=== PATIENT | female | born 1965 | race Caucasian/White ===

== ENCOUNTER → 2016-10-13 | Outpatient (CLI) | payer BC ==
[~2016-10-13] MED LIST: ASP81TEC PO; DCS100C PO; ENAL2.5T PO; ENAL5TAB PO; HYDR-34 PO; IBP600T1 PO; IBUP-1773 PO; MEDR10TA PO; METO50TA7 PO; Simethicone PO
--- NOTE | 2016-10-16 18:57 | Diagnostic Imaging Report ---
Bilateral screening mammogram. The current study was also evaluated with a Computer Aided Detection (CAD) system. INDICATION: Screening. No current complaints stated on the questionnaire. COMPARISON: 09/25/14 FINDINGS: The breasts are composed of heterogeneously dense parenchyma which may decrease mammographic sensitivity. There are scattered punctate calcifications seen. Allowing for technique and positional differences, no suspicious change is seen. IMPRESSION: No significant change. ACR BI-RADS Category 2: Benign findings. Result letter will be mailed to the patient. Note: At least 10% of breast cancer is not imaged by mammography. Dictated by: Dictated on workstation # [id number]
== END ==
LOC: RAD 13:01
PROVIDERS: ATTEND Obstetrics & Gynecology
DX: Z12.31 Encounter for screening mammogram for malignant neoplasm of breast (principal)
CPT/HCPCS: 77067

== ENCOUNTER 2018-07-10 16:57 | Observation (INO) | payer SELFPAY ==
[~2018-07-10] VITALS: Ht 157.5 cm; Wt 80.7 kg
[2018-07-10] VITALS (8 sets, daily range): BP systolic 106–135; BP diastolic 67–78
[2018-07-10 17:21] LABS: BASOPHILS % (AUTO) 0 % (0-10); EOSINOPHILS # (AUTO) 0.1 10^3/uL (0.0-0.3); EOSINOPHILS % (AUTO) 1 % (0-10); HEMATOCRIT 41 % (35-52); HEMOGLOBIN 13.9 G/DL (11.5-16.0); LYMPHOCYTES # (AUTO) 1.9 X 10^3 (1.0-4.0); LYMPHOCYTES % (AUTO) 20 % (12-44); MEAN CORPUSCULAR HEMOGLOBIN 29 PG (25-34); MEAN CORPUSCULAR HGB CONC 34 G/DL (32-36); MEAN CORPUSCULAR VOLUME 84 FL (80-99); MEAN PLATELET VOLUME 9.9 FL (7.4-10.4); MONOCYTES # (AUTO) 0.7 X 10^3 (0.0-1.0); MONOCYTES % (AUTO) 7 % (0-12); NEUTROPHILS # (AUTO) 6.5 X 10^3 (1.8-7.8); NEUTROPHILS % (AUTO) 71 % (42-75); PLATELET COUNT 282 10^3/uL (130-400); RED CELL DISTRIBUTION WIDTH 13.2 % (10.0-14.5); WHITE BLOOD COUNT 9.2 10^3/uL (4.3-11.0)
--- NOTE | 2018-07-10 17:23 | Diagnostic Imaging Report ---
INDICATION: Chest pain. FINDINGS: Upright chest shows normal heart size and vascularity. The lungs are clear. There is no effusion or pneumothorax. There is no bony abnormality. IMPRESSION: Normal chest with no change from 12/18/2014. Dictated by: Dictated on workstation # [id number]
[2018-07-10] MEDS ORDERED: ACETAMINOPHEN 500 MG TAB (TYLENOL) PO STA (17:28)
[2018-07-10] MEDS ORDERED: meTOproloL SUCCINATE 50 MG (TOPROL XL) TAB PO SCH (17:30)
[2018-07-10 17:38] LABS: PROTHROMBIN TIME PATIENT 13.1 SEC (12.2-14.7)
[2018-07-10 17:45] LABS: ALANINE AMINOTRANSFERASE 40 U/L (0-55); ALBUMIN 4.4 GM/DL (3.2-4.5); ALKALINE PHOSPHATASE 105 U/L (40-136); BILIRUBIN,TOTAL 0.4 MG/DL (0.1-1.0); BUN/CREATININE RATIO 18; CALCIUM 9.6 MG/DL (8.5-10.1); CARBON DIOXIDE 25 MMOL/L (21-32); CHLORIDE 106 MMOL/L (98-107); CREATININE SERUM 0.73 MG/DL (0.60-1.30); GFR ESTIMATED > 60; GLUCOSE 110 MG/DL (70-105); MAGNESIUM 2.3 MG/DL (1.8-2.4); POTASSIUM 3.7 MMOL/L (3.6-5.0); SODIUM 141 MMOL/L (135-145); TOTAL PROTEIN 7.2 GM/DL (6.4-8.2)
[2018-07-10] MEDS ORDERED: ONDANSETRON 4 MG/2 ML (SDV) Z0FRAN ONE (17:49)
--- NOTE | 2018-07-10 17:50 | ED Chest Pain ---
General Chief Complaint: Chest Pain Stated Complaint: CP Nursing Triage Note: TO ED PER EMS FROM [facility] WITH C/O CHEST AND SOA ONSET AT 1230 TODAY. PAIN A 7/10 ON EMS ARRIJVAL 1 INCH OF NITRO PASTE PLACED ON CHEST WALL ON ADMIT TO ED PAIN FREE. CONCERN FROM [facility] THAT SHE WAS HYPERTENSIVE FOR THEM. Nursing Sepsis Screen: No Definite Risk Source: patient Exam Limitations: no limitations (KELLY BARRETO MD) History of Present Illness Date Seen by Provider: Jul 10, 2018 Time Seen by Provider: 17:21 Initial Comments Ear with onset of chest palpitations and some discomfort that radiated to her back that started at about 12:30 today. Seen at clinic and had pain that was 7 out of 10. She does have an inch of Nitropaste on the chest wall which did help significantly and currently is pain-free. She apparently was hypertensive at the clinic. She admits that she for got to take her metoprolol today. Denies nausea or vomiting but did vomit after arrival. Does have some shortness of breath. Denies sweating. Timing/Duration: 4-6 hours Severity/Quality: moderate, aching Location: central Radiation: back Activities at Onset: none Prior CP/Workup: cardiac cath, echocardiography, stress test Modifying Factors: improves with nitroglycerin, improves with rest ASA po TOBACCO BALER: Yes NTG SL TOBACCO BALER: Yes Associated Symptoms: nausea/vomiting, shortness of breath; No weakness ( KELLY BARRETO MD) Allergies and Home Medications Allergies Coded Allergies: Penicillins (Verified Allergy, Unknown, 08/13/14) latex (Verified Allergy, Unknown, 08/13/14) Home Medications Docusate Sodium 100 Mg Cap, 100 MG PO BID PRN for CONSTIPATION Prescribed by: ALYX STARK on 10/29/14 172 Enalapril Maleate 5 Mg Tablet, 5 MG PO BID, (Reported) Hydrocodone Bit/Acetaminophen 1 Ea Tablet, 1-2 EA PO Q6H PRN for PAIN Prescribed by: ALYX STARK on 10/29/14 172 Ibuprofen 600 Mg Tab, 600 MG PO Q6H PRN for PAIN Prescribed by: ALYX STARK on 10/29/14 172 Metoprolol Succinate 50 Mg Tab, 50 MG PO HS, (Reported) [Simethicone] 80 MG CHEW, 40 MG PO TID PRN for INDIGESTION Prescribed by: ALYX STARK on 10/29/14 1721 Patient Home Medication List Home Medication List Reviewed: Yes (KELLY BARRETO MD) Review of Systems Review of Systems Constitutional: see HPI; No chills, No fever EENTM: No Symptoms Reported Respiratory: Denies Cough; Shortness of Air Cardiovascular: Chest Pain, Palpitations Gastrointestinal: Nausea, Vomiting Genitourinary: No Symptoms Reported Musculoskeletal: no symptoms reported Skin: no symptoms reported Psychiatric/Neurological: No Symptoms Reported (KELLY BARRETO MD) All Other Systems Reviewed Negative Unless Noted: Yes (KELLY BARRETO MD) Past Rpofhwi-Xiqhsa-Njrkbi Hx Past Med/Social Hx: Reviewed Nursing Past Med/Soc Hx (KELLY BARRETO MD) Patient Social History Alcohol Use: Occasionally Uses Recreational Drug Use: No Smoking Status: Never a Smoker Recent Foreign Travel: No Contact w/Someone Who Travel: No Recent Infectious Disease Expo: No (KELLY BARRETO MD) Past Medical History Surgeries: Yes Section, Hysterectomy Respiratory: No Cardiac: Yes (() Hypertension 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 Genitourinary: No Gastrointestinal: No Musculoskeletal: No Endocrine: No HEENT: No Loss of Vision: Denies Hearing Impairment: Denies Cancer: No Did You Recieve Any Treatments: No (KELLY BARRETO MD) Family Medical History Reviewed Nursing Family Hx (Is on the) (KELLY BARRETO MD) Diabetes mellitus 19 FATHER Hypertension 19 FATHER 19 MOTHER Thyroid disease 19 MOTHER No Family History of: AIDS Abdominal aortic aneurysm Alcoholism Aphasia Arthritis Asthma Cardiovascular disease Cataracts Colon cancer Completed stroke Congenital disease Dementia Drug abuse Kidney disease Myocardial infarction Parkinson's disease Prostate cancer Psychosocial problem Respiratory disorder Seizure disorder Severe allergy Tuberculosis Visual disorder Physical Exam Vital Signs Vital Signs - First Documented 07/10/18 16:57 Temp 98.0 Pulse 116 Resp 18 B/P (MAP) 159/108 (125) Pulse Ox 95 O2 Delivery Room Air (ARIADNEDANIEL K DO) Vital Signs Capillary Refill : Less Than 3 Seconds (KELLY BARRETO MD) Height, Weight, BMI Height: 5'2.00" Weight: 175lbs. 0.0oz. 79.652830dc; BMI Method:Stated General Appearance: No Apparent Distress, WD/WN HEENT: PERRL/EOMI, Pharynx Normal Neck: Non Tender, Supple Respiratory: Lungs Clear, Normal Breath Sounds (Right) Cardiovascular: No Murmur, Tachycardia Gastrointestinal: Non Tender, Soft Extremity: Normal Range of Motion, Non Tender Neurologic/Psychiatric: Alert, Oriented x3 Skin: Normal Color, Warm/Dry (KELLY BARRETO MD) Progress/Results/Core Measures Results/Orders Lab Results Laboratory Tests Test 07/10/18 17:11 Range/Units White Blood Count 9.2 4.3-11.0 10^3/uL Red Blood Count 4.86 4.35-5.85 10^6/uL Hemoglobin 13.9 11.5-16.0 G/DL Hematocrit 41 35-52 % Mean Corpuscular Volume 84 80-99 FL Mean Corpuscular Hemoglobin 29 25-34 PG Mean Corpuscular Hemoglobin Concent 34 32-36 G/DL Red Cell Distribution Width 13.2 10.0-14.5 % Platelet Count 282 130-400 10^3/uL Mean Platelet Volume 9.9 7.4-10.4 FL Neutrophils (%) (Auto) 71 42-75 % Lymphocytes (%) (Auto) 20 12-44 % Monocytes (%) (Auto) 7 0-12 % Eosinophils (%) (Auto) 1 0-10 % Basophils (%) (Auto) 0 0-10 % Neutrophils # (Auto) 6.5 1.8-7.8 X 10^3 Lymphocytes # (Auto) 1.9 1.0-4.0 X 10^3 Monocytes # (Auto) 0.7 0.0-1.0 X 10^3 Eosinophils # (Auto) 0.1 0.0-0.3 10^3/uL Basophils # (Auto) 0.0 0.0-0.1 10^3/uL Prothrombin Time 13.1 12.2-14.7 SEC INR Comment 1.0 0.8-1.4 Activated Partial Thromboplast Time 31 24-35 SEC D-Dimer 0.31 0.00-0.49 UG/ML Sodium Level 141 135-145 MMOL/L Potassium Level 3.7 3.6-5.0 MMOL/L Chloride Level 106 98-107 MMOL/L Carbon Dioxide Level 25 21-32 MMOL/L Anion Gap 10 5-14 MMOL/L Blood Urea Nitrogen 13 7-18 MG/DL Creatinine 0.73 0.60-1.30 MG/DL Estimat Glomerular Filtration Rate > 60 BUN/Creatinine Ratio 18 Glucose Level 110 H 70-105 MG/DL Calcium Level 9.6 8.5-10.1 MG/DL Corrected Calcium 9.3 8.5-10.1 MG/DL Magnesium Level 2.3 1.8-2.4 MG/DL Total Bilirubin 0.4 0.1-1.0 MG/DL Aspartate Amino Transf (AST/SGOT) 27 5-34 U/L Alanine Aminotransferase (ALT/SGPT) 40 0-55 U/L Alkaline Phosphatase 105 40-136 U/L Myoglobin 47.0 10.0-92.0 NG/ML Troponin I < 0.028 <0.028 NG/ML Total Protein 7.2 6.4-8.2 GM/DL Albumin 4.4 3.2-4.5 GM/DL Thyroid Stimulating Hormone (TSH) 1.69 0.35-4.94 UIU/ML (DANIEL GRIGGS DO) Medications Given in ED Current Medications Medications Dose Ordered Sig/Barney Route Start Time Stop Time Status Last Admin Dose Admin Ondansetron HCl 4 mg ONCE ONCE IVP 07/10/18 18:00 07/10/18 18:01 DC 07/10/18 17:55 4 MG (DANIEL GRIGGS DO) Vital Signs/I&O 07/10/18 16:57 Temp 98.0 Pulse 116 Resp 18 B/P (MAP) 159/108 (125) Pulse Ox 95 O2 Delivery Room Air (DANIEL GRIGGS DO) Blood Pressure Mean: 125 Progress Progress Note : Progress Note Seen and evaluated. IV the clinic. Patient received aspirin and nitroglycerin prior to arrival. Labs, EKG and chest x-ray ordered. Patient has headache so Tylenol 1 g by mouth given. Toprol-XL 50 mg by mouth given. Patient did have some dry heaves afterwards. We will remove the Nitropaste. Zofran 4 mg IV ordered. Pending labs. Monitor patient. 1811: Care transferred to Dr. Griggs pending labs. Overall improved currently without vomiting or chest pain. (KELLY BARRETO MD) Progress Note : Progress Note 1800--ASSUMED CARE FROM DR. BARRETO, ALL STUDIES BACK AND ARE NORMAL. PT IS PAIN -FREE AT THIS TIME PT STATES SHE SEES DR. DURÁN ON FAIRLY REGULAR BASIS, LAST VISIT WAS > 6 MONTHS AGO PT ALSO SEES AMA MACKEY AT [facility] NOW. (DANIEL GRIGGS DO) Initial ECG Impression Date: Jul 10, 2018 Initial ECG Impression Time: 17:04 Initial ECG Rate: 116 Initial ECG Rhythm: S.Tach Comment Sinus tachycardia with normal axis. No evidence of ST elevation TN. Similar to EKGs done at clinic earlier today as well as 08/13/14 bit faster rate than then. Interpreted by me. (KELLY BARRETO MD) Diagnostic Imaging Diagonstic Imaging: Xray Plain Films/CT/US/NM/MRI: chest Comments [facility] [place], [place] NAME: ELOISE FITZGERALD [facility] REC#: [id number] PT STATUS: REG ER : 1965 PHYSICIAN: KELLY BARRETO MD ADMIT DATE: 07/10/18/ER Draft Date of Exam:07/10/18 CHEST 1 VIEW, AP/PA ONLY INDICATION: Chest pain. FINDINGS: Upright chest shows normal heart size and vascularity. The lungs are clear. There is no effusion or pneumothorax. There is no bony abnormality. IMPRESSION: Normal chest with no change from 12/18/2014. Dictated on workstation # [id number] Dict: 07/10/18 1720 Trans: 07/10/18 1723 [id number] Interpreted by: LETTY VAN MD Electronically signed by: (KELLY BARRETO MD) Departure Communication (Admissions) 1827--SPOKE WITH DR ROBLES, ACCEPTS PT FOR ADMIT. WILL CONSULT TEST LEAD APPLICATION TESTING (DANIEL GRIGGS DO) Impression Primary Impression: Chest pain Disposition: ADMITTED INPATIENT Condition: Improved Admissions Decision to Admit Reason: Admit from ER (General) Decision to Admit/Date: Jul 10, 2018 Time/Decision to Admit Time: 18:30 (DANIEL GRIGGS DO) Departure-Patient Inst. Referrals: DANIEL AVILES MD (PCP/Family) Primary Care Physician KELLY BARRETO MD Jul 10, 2018 17:49 DANIEL GRIGGS DO Jul 10, 2018 18:30
--- NOTE | 2018-07-10 17:55 | NUR ---
NITRO PASTE REMOVED FROM PTS CHEST AT THIS TIME PER DR BARRETO
[2018-07-10] MEDS ORDERED: ONDANSETRON 4 MG/2 ML (SDV) Z0FRAN IVP ONE (18:00)
--- NOTE | 2018-07-10 18:22 | NUR ---
TO ROOM FEELING BETTER. AFTER ZOFRAN
--- NOTE | 2018-07-10 18:36 | NUR ---
CALLED FOR ROOM
--- NOTE | 2018-07-10 20:00 | NUR ---
ELOISE FITZGERALD admitted to room 417-1, with an admitting diagnosis of CHEST PAIN, on 07/10/18 from ED via , accompanied by STAFF AND .ELOISE FITZGERALD introduced to surroundings, call light, bed controls, phone, TV, temperature control, lights, meal times, smoking policy, visitor policy, side rail policy, bathrooms and showers. Patient Rights given to patient in the handbook. ELOISE FITZGERALD verbalizes understanding that [facility] is not responsible for the loss or damage to any personal effects or valuables that are kept in the patients possession during their hospitalization. PLANS OF CARE DISCUSSED WITH PT AND VERBALIZES UNDERSTANDING. ELOISE FITZGERALD verbalizes understanding of Interdisciplinary Patient Education. Patient and/or family were informed about the Rapid Response Team and its purpose.
[2018-07-10] MEDS ORDERED: morphine INJ 4 MG/ML 1 ML (VIAL/SYRINGE) IV PRN (20:30)
[2018-07-10] MEDS ORDERED: ACETAMINOPHEN 500 MG TAB (TYLENOL) PO PRN (20:30)
[2018-07-10] MEDS ORDERED: ONDANSETRON 4 MG/2 ML (SDV) Z0FRAN IV PRN (20:30)
[2018-07-10] MEDS ORDERED: CATHETER FLUSH 10 ML SYR IV PRN (20:30)
[2018-07-10] MEDS ORDERED: NITROGLYCERIN 0.4 MG SL TABS BTL 25'S SL PRN (20:30)
--- NOTE | 2018-07-10 20:52 | NUR ---
THIS RN NOTIFIED DR ARDON OF CARDIAC CONSULT ON PT. DR ARDON GAVE ORDERS TO CANCEL NPO AND THAT HE WOULD NOTIFY DR DURÁN TO SEE HER TOMORROW.
[2018-07-10 21:16] LABS: BASOPHILS % (AUTO) 0 % (0-10); EOSINOPHILS # (AUTO) 0.1 10^3/uL (0.0-0.3); EOSINOPHILS % (AUTO) 1 % (0-10); HEMATOCRIT 40 % (35-52); HEMOGLOBIN 13.5 G/DL (11.5-16.0); LYMPHOCYTES # (AUTO) 1.7 X 10^3 (1.0-4.0); LYMPHOCYTES % (AUTO) 17 % (12-44); MEAN CORPUSCULAR HEMOGLOBIN 29 PG (25-34); MEAN CORPUSCULAR HGB CONC 34 G/DL (32-36); MEAN CORPUSCULAR VOLUME 84 FL (80-99); MEAN PLATELET VOLUME 9.9 FL (7.4-10.4); MONOCYTES # (AUTO) 0.6 X 10^3 (0.0-1.0); MONOCYTES % (AUTO) 6 % (0-12); NEUTROPHILS # (AUTO) 7.5 X 10^3 (1.8-7.8); NEUTROPHILS % (AUTO) 76 % (42-75); PLATELET COUNT 286 10^3/uL (130-400); RED CELL DISTRIBUTION WIDTH 13.2 % (10.0-14.5); WHITE BLOOD COUNT 9.9 10^3/uL (4.3-11.0)
[2018-07-10 21:21] LABS: PROTHROMBIN TIME PATIENT 13.8 SEC (12.2-14.7)
[2018-07-10 21:30] LABS: ALANINE AMINOTRANSFERASE 40 U/L (0-55); ALBUMIN 4.3 GM/DL (3.2-4.5); ALKALINE PHOSPHATASE 91 U/L (40-136); BILIRUBIN,TOTAL 0.5 MG/DL (0.1-1.0); BUN/CREATININE RATIO 18; CALCIUM 9.7 MG/DL (8.5-10.1); CARBON DIOXIDE 25 MMOL/L (21-32); CHLORIDE 104 MMOL/L (98-107); CREATINE KINASE 69 U/L (29-168); CREATININE SERUM 0.77 MG/DL (0.60-1.30); GFR ESTIMATED > 60; GLUCOSE 113 MG/DL (70-105); POTASSIUM 3.7 MMOL/L (3.6-5.0); SODIUM 140 MMOL/L (135-145); TOTAL PROTEIN 6.8 GM/DL (6.4-8.2)
[2018-07-10] MEDS: CATHETER FLUSH 10 ML SYR IV SCH (22:09)
[2018-07-11] VITALS: BP 98/60
[2018-07-11 01:00] VITALS: BP 128/68
[2018-07-11 02:44] LABS: CHOLESTEROL 184 MG/DL (< 200); HDL CHOLESTEROL 52 MG/DL (40-60); TRIGLYCERIDES 101 MG/DL (<150); VLDL CHOLESTEROL 20 MG/DL (5-40)
[2018-07-11 04:48] VITALS: BP 112/54
[2018-07-11] MEDS: CATHETER FLUSH 10 ML SYR IV SCH ×2 (06:16→14:55)
[2018-07-11 07:45] VITALS: BP 133/70
[2018-07-11] MEDS ORDERED: ASPIRIN E.C. 81 MG (ECOTRIN) TAB PO SCH (09:00)
[2018-07-11] MEDS ORDERED: PHEN-832 PO (09:00)
[2018-07-11] MEDS ORDERED: ENAL10TA PO (09:00)
[2018-07-11] MEDS ORDERED: HYDR25TA4 PO (09:00)
[2018-07-11] MEDS ORDERED: FLUT16SP22 NS (09:00)
[2018-07-11] MEDS ORDERED: FEXO180T84 PO (09:00)
[2018-07-11] MEDS ORDERED: METO-370 PO (09:17)
--- NOTE | 2018-07-11 09:34 | NUR ---
SPOKE WITH THE PATIENT ABOUT HER MEDICATIONS. SHE LISTED TO ME WHAT SHE TAKES AND I COMPARED IT WITH THE LIST OF MEDICATIONS ON THE CHART. THE LIST ON THE CHART IS A PROGRESS NOTE FROM [facility]. THERE ARE A FEW MEDS ON THAT LIST THAT THAT PATIENT STATES SHE IS NO LONGER TAKING. SHE STATES SHE GETS MOST OF HER MEDS THROUGH THE REPOSITORY AT [facility]. LIST FROM [facility]: ENALAPRIL 10MG DAILY (LAST DOCUMENTED THAT IT WAS GIVEN FROM REPOSITORY 12-27-17 #90) HCTZ 25MG DAILY (UNKNOWN LAST DISPENSE DATE, PATIENT STATES SHE USES PRN SWELLING) METOPROLOL TARTRATE 50MG DAILY (NOTED THAT THIS IS INCORRECT AND PATIENT IS TAKING SUCC) METOPROLOL SUCCINATE 50MG DAILY ESCITALOPRAM 20MG DAILY (STATES SHE IS NOT CURRENTLY TAKING) TOLTERODINE TARTRATE ER 2MG DAILY (STATES SHE IS NOT CURRENTLY TAKING) GERARD 180MG DAILY PRN SUDAFED (STATES SHE BUYS SUDAFED PE AND ONLY USES PRN) FLONASE NASAL SPRAY NEEDED WHEN I SPOKE WITH A NURSE AT [facility] SHE COULD NOT FIND DOCUMENTATION OF THE METOPROLOL BEING DISPENSED THROUGH THE REPOSITORY, SHE STATES THERE IS A NOT THAT THE TARTRATE WAS REFILLED ON 03-28-18 WITH 6 REFILLS TO THE PHARMACY BUT NOT REPOSITORY. [facility] HAS NOT FILLED ANYTHING FOR THE PATIENT SINCE DEC 2017. I ALSO CALLED [facility] WHICH IS WHERE THE PATIENT STATES SHE GETS MEDS THAT SHE DOES NOT GET FROM [facility] AND THEY STATE THEY HAVE NOT FILLED ANYTHING FOR HER IN A YEAR. NURSE AT [facility] STATES THE NOTES MENTION THEY CONTACTED DR. DURÁN'S OFFICE AND THEY REPORTED THE PATIENT IS TO BE TAKING THE METOPROLOL SUCCINATE HOWEVER IT IS UNCLEAR WHAT MED SHE IS ACTUALLY RECEIVING THROUGH THE REPOSITORY. WHEN I ASKED THE PATIENT ABOUT THIS SHE THINKS SHE HAS BEEN TAKING THE TARTRATE. I HAVE CALLED AND LEFT A MESSAGE FOR HER TO SEE IF HE CAN LOOK AT HER BOTTLE AT HOME. I WILL UPDATE THE MED REC AND THIS NOTE WHEN I AM ABLE TO GET IN TOUCH WITH HIM.
--- NOTE | 2018-07-11 09:45 | Diagnostic Imaging Report ---
INDICATION: Cough. Chest pain. COMPARISON: 07/10/2018 FINDINGS: Frontal and lateral views of the chest demonstrate normal heart size and pulmonary vascularity. The lungs are clear. There are no signs of infiltrate, pleural effusions or pneumothoraces. The visualized osseous structures show no acute abnormalities. IMPRESSION: 1. No acute process. No signs of infiltrates, effusions or pneumothoraces. Dictated by: Dictated on workstation # [id number]
[2018-07-11 11:05] VITALS: BP 129/60
[2018-07-11 12:00] LABS: BACTERIA,URINE TRACE /HPF; BILIRUBIN,URINE NEGATIVE (NEGATIVE); CLARITY,URINE CLEAR; COLOR,URINE YELLOW; GLUCOSE, URINE (UA) NEGATIVE (NEGATIVE); KETONES,URINE NEGATIVE (NEGATIVE); LEUKOCYTE ESTERASE ,URINE NEGATIVE (NEGATIVE); NITRITE,URINE NEGATIVE (NEGATIVE); PH,URINE 7 (5-9); PROTEIN,URINE NEGATIVE (NEGATIVE); SQUAMOUS EPITHELIAL CELL,UR 0-2 /HPF; UROBILINOGEN,URINE 1 MG/DL (NORMAL)
[2018-07-11 14:47] VITALS: BP 129/60
--- NOTE | 2018-07-12 00:56 | Short Stay Summary ---
History of Present Illness History of Present Illness Reason for visit/HPI 53 yo female presented to due to aching chest pain along with palpitations and shortness of breath. She has had palpitations in the past and sees Cardiology. She has not had chest pain prior however, and has family history of CAD in her father in his 40s. Chest pain is resolved am after admit. Date of Admission Jul 10, 2018 at 18:30 Date of Discharge Jul 11, 2018 at 14:46 Time Seen by Provider: 08:43 Attending Physician Chichi Bass MD Admitting Physician [place] Consult Cardiology/Dr. Silva Allergies and Home Medications Allergies Coded Allergies: Penicillins (Verified Allergy, Unknown, 08/13/14) latex (Verified Allergy, Unknown, 08/13/14) Home Medications Enalapril Maleate 10 Mg Tablet, 10 MG PO DAILY, (Reported) UNKNOWN LAST FILL DATE - REPOSITORY MED Fexofenadine HCl 180 Mg Tablet, 180 MG PO DAILY PRN for ALLERGIES, (Reported) Fluticasone Propionate 16 Gm [place].susp, 2 SPRAYS NS DAILY PRN for CONGESTION, ( Reported) Hydrochlorothiazide 25 Mg Tablet, 25 MG PO DAILY PRN for SWELLING, (Reported) UNKNOWN LAST FILL DATE - REPOSITORY MED Metoprolol Succinate 50 Mg Tab.er.24h, 50 MG PO DAILY, (Reported) UNKNOWN LAST FILL DATE - REPOSITORY MED Phenylephrine HCl 10 Mg Tablet, 10 MG PO BID PRN for CONGESTION, (Reported) Patient Home Medication List Home Medication List Reviewed: Yes Past Nltrkgn-Vdvqtg-Fhfphh Hx Patient Social History Alcohol Use: Occasionally Uses Recreational Drug Use: No Smoking Status: Never a Smoker Recent Foreign Travel: No Contact w/other who traveled: No Recent Infectious Disease Expo: No Surgeries Yes Section, Hysterectomy Respiratory No Cardiovascular Yes (() Hypertension Neurological No 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 Genitourinary No Gastrointestinal No Musculoskeletal No Endocrine History of Endocrine Disorders: No HEENT History of HEENT Disorders: No Loss of Vision: Denies Hearing Impairment: Denies Cancer No Did You Recieve Any Treatments: No Family Medical History Significant Family History: CAD Under 55 Years Old, Diabetes, Hypertension Family Hx: Diabetes mellitus 19 FATHER Hypertension 19 FATHER 19 MOTHER Thyroid disease 19 MOTHER No Family History of: AIDS Abdominal aortic aneurysm Alcoholism Aphasia Arthritis Asthma Cardiovascular disease Cataracts Colon cancer Completed stroke Congenital disease Dementia Drug abuse Kidney disease Myocardial infarction Parkinson's disease Prostate cancer Psychosocial problem Respiratory disorder Seizure disorder Severe allergy Tuberculosis Visual disorder Review of Systems Constitutional: No fever EENTM: nose congestion Respiratory: cough (occasional) Cardiovascular: see HPI Gastrointestinal: No abdominal pain Genitourinary: No dysuria Skin: rash (erythematous papules that wax and wane on forearm for last month) Physical Exam Vital Signs Vital Signs - First Documented 07/10/18 16:57 Temp 98.0 Pulse 116 Resp 18 B/P (MAP) 159/108 (125) Pulse Ox 95 O2 Delivery Room Air Capillary Refill : Less Than 3 Seconds Height, Weight, BMI Height: 5'2.00" Weight: 178lbs. 0.0oz. 80.043653qd; 32.6 BMI Method:Stated General Appearance: No Apparent Distress, WD/WN Respiratory: Lungs Clear, Normal Breath Sounds Cardiovascular: Regular Rate, Rhythm, No Edema Gastrointestinal: Normal Bowel Sounds, Non Tender, Soft Extremity: No Pedal Edema Neurologic/Psychiatric: Alert, Oriented x3 Skin: Normal Color, Warm/Dry, Rash (erythematous macules on left forearm) Clinical Quality Measures AMI/AHF: ASA po Prior to arrival: Yes DVT/VTE Risk/Contraindication: Risk Factor Score Per Nursin RFS Level Per Nursing on Admit: 3=High Short Stay Diagnosis Discharge Diagnosis-Short Stay Admission Diagnosis: Chest pain Final Discharge Diagnosis: Chest pain- negative troponins, no EKG changes. Cardiolgoy consulted, did not request further inpatient testing, will follow up outpatient. Conclusion Labs Laboratory Tests 07/11/18 02:15: Troponin I < 0.028, Triglycerides Level 101, Cholesterol Level 184, LDL Cholesterol Direct 119, VLDL Cholesterol 20, HDL Cholesterol 52 07/11/18 11:45: Urine Color YELLOW, Urine Clarity CLEAR, Urine pH 7, Urine Specific Wright 1.015L, Urine Protein NEGATIVE, Urine Glucose (UA) NEGATIVE, Urine Ketones NEGATIVE, Urine Nitrite NEGATIVE, Urine Bilirubin NEGATIVE, Urine Urobilinogen 1 , Urine Leukocyte Esterase NEGATIVE, Urine RBC (Auto) NEGATIVE, Urine RBC NONE, Urine WBC NONE, Urine Squamous Epithelial Cells 0-2, Urine Crystals NONE, Urine Bacteria TRACE, Urine Casts NONE, Urine Mucus SMALLH, Urine Culture Indicated NO Conclusion/Plan See final discharge diagnosis Copy Copies To 1: OUMOU Selby BETHANY N MD Jul 12, 2018 00:56
== END 2018-07-11 14:46 | disposition home or self-care (01) ==
LOC: EDUNIT# 16:57 → ER 16:59 → 4TH 18:30
PROVIDERS: ADMIT Family Medicine; ATTEND Family Medicine
DX: R07.9 Chest pain, unspecified (principal); I10 Essential (primary) hypertension; R21 Rash and other nonspecific skin eruption; Z79.899 Other long term (current) drug therapy; Z88.0 Allergy status to penicillin; Z82.49 Family history of ischemic heart disease and other diseases of the circulatory system
CPT/HCPCS: 36415; 71045; 71046; 80053; 80061; 81000; 82550; 83735; 83874; 84443; 84484; 85025; 85379; 85610; 85730; 93005; 93041; 96374

== ENCOUNTER → 2018-08-28 | Outpatient (CLI) | payer OTHER ==
[~2018-08-28] MED LIST changes: +CATHETER FLUSH 10 ML SYR IV PRN; +ENAL10TA PO; +FEXO180T84 PO; +FLUT16SP22 NS; +HYDR25TA4 PO; +METO-370 PO; +PANT40SU PO; +PHEN-832 PO
[2018-08-28 12:56] VITALS: BP 133/84
--- NOTE | 2018-08-28 19:56 | STRESS TEST ---
DATE OF SERVICE: 08/28/2018 EXERCISE MYOVIEW STRESS TEST REPORT REFERRING PHYSICIAN: [facility]. Baseline heart rate is 80. Baseline blood pressure 143/75. Baseline EKG is sinus rhythm with no ischemic changes. In summary, the patient was injected with 10.87 mCi of technetium-99 Myoview and the resting images were obtained. Then, the patient started exercising with a baseline heart rate, blood pressure and EKG mentioned above. The patient was able to exercise for 5 minutes and 45 seconds on standard Bere[place] protocol. With peak exercise level, the patient was given 30.5 mCi of technetium-99 Myoview, was able to achieve maximum heart rate of 148 which is 89% of maximum expected heart rate. At peak exercise level, blood pressure was 189/95. EKG was showing minimal nondiagnostic changes. During recovery, heart rate and blood pressure returned to baseline. EKG returned to baseline. The resting and stress images were reviewed and compared in the short axis, horizontal long axis, and vertical long axis views. Review of the images showed breast attenuation with decreased uptake involving the basal to mid anterior wall and anterolateral wall with mild reversibility. SSS is 5, SDS 5, TID value 1.01. On the gated images, the left ventricle appeared to be normal size with normal contractility. Calculated ejection fraction 58%. IN CONCLUSION: 1. Fair exercise tolerance, a total of 5 minutes 45 seconds on standard Bereket protocol, a total of 7.1 METS achieving 89% of maximum expected heart rate. 2. Severe hypertensive response to exercise, returned to baseline during recovery. 3. Minimal nondiagnostic EKG changes with exercise, returned to baseline during recovery. 4. Breast attenuation with mild ischemia involving the basal to mid anterior wall and anterolateral wall. It could be secondary to the breast attenuation. 5. Normal left ventricular size with normal contractility. Calculated ejection fraction 58%. Job ID: [id number] DocumentID: [id number] Dictated Date: 08/28/2018 16:27:26 Civil Rights Investigator Date: 08/28/2018 19:55:20 Dictated By: JAMIL DURÁN MD
== END ==
LOC: CARD 10:03
PROVIDERS: ATTEND Physician Assistant
DX: R07.89 Other chest pain (principal); I10 Essential (primary) hypertension; E78.5 Hyperlipidemia, unspecified; Z82.49 Family history of ischemic heart disease and other diseases of the circulatory system
CPT/HCPCS: 78452; 93017

== ENCOUNTER 2018-08-30 11:09 | Day surgery (SDC) | payer OTHER ==
[2018-08-30] VITALS (11 sets, daily range): BP systolic 92–127; BP diastolic 60–74
[~2018-08-30] VITALS: Ht 157.5 cm; Wt 78.9 kg
[~2018-08-30 11:09] MED LIST changes: -CATHETER FLUSH 10 ML SYR IV PRN; -PANT40SU PO
[2018-08-30] MEDS ORDERED: HEParin (CATH LAB) 2,000 ML IV ONE (12:35)
[2018-08-30] MEDS ORDERED: LIDOCAINE 1% INJ 20 ML 20 ML VIAL ONE (12:35)
[2018-08-30] MEDS ORDERED: NS IV 1000 ML 1,000 ML ONE (12:35)
[2018-08-30] MEDS ORDERED: NS IV 1000 ML 1,000 ML IV SCH ×2 (12:45→14:43)
--- NOTE | 2018-08-30 13:06 | Diagnostic Imaging Report ---
INDICATION: Chest pain. TIME OF EXAM: 12:58 PM Correlation is made with prior study from 07/11/2018. FINDINGS: The heart size is normal. The pulmonary vascularity is unremarkable. The lungs are clear. No infiltrate, effusion or pneumothorax is detected. IMPRESSION: No acute cardiopulmonary process is detected. Dictated by: Dictated on workstation # [id number]
[2018-08-30 13:09] LABS: HEMOGLOBIN 14.5 G/DL (11.5-16.0); MEAN PLATELET VOLUME 9.9 FL (7.4-10.4); RED CELL DISTRIBUTION WIDTH 13.5 % (10.0-14.5); WHITE BLOOD COUNT 8.5 10^3/uL (4.3-11.0)
[2018-08-30 13:20] LABS: BILIRUBIN,URINE NEGATIVE (NEGATIVE); CLARITY,URINE SLIGHTLY CLOUDY; COLOR,URINE YELLOW; GLUCOSE, URINE (UA) NEGATIVE (NEGATIVE); KETONES,URINE NEGATIVE (NEGATIVE); LEUKOCYTE ESTERASE ,URINE NEGATIVE (NEGATIVE); NITRITE,URINE NEGATIVE (NEGATIVE); PH,URINE 6 (5-9); PROTEIN,URINE NEGATIVE (NEGATIVE); UROBILINOGEN,URINE NORMAL (NORMAL)
[2018-08-30 13:21] LABS: PROTHROMBIN TIME PATIENT 13.5 SEC (12.2-14.7)
[2018-08-30 13:26] LABS: ALANINE AMINOTRANSFERASE 35 U/L (0-55); ALBUMIN 4.5 GM/DL (3.2-4.5); ALKALINE PHOSPHATASE 92 U/L (40-136); BILIRUBIN,TOTAL 0.4 MG/DL (0.1-1.0); BUN/CREATININE RATIO 16; CALCIUM 9.8 MG/DL (8.5-10.1); CARBON DIOXIDE 26 MMOL/L (21-32); CHLORIDE 108 MMOL/L (98-107); CHOLESTEROL 214 MG/DL (< 200); CREATININE SERUM 0.82 MG/DL (0.60-1.30); GFR ESTIMATED > 60; GLUCOSE 104 MG/DL (70-105); HDL CHOLESTEROL 59 MG/DL (40-60); POTASSIUM 4.2 MMOL/L (3.6-5.0); SODIUM 141 MMOL/L (135-145); TOTAL PROTEIN 7.3 GM/DL (6.4-8.2); TRIGLYCERIDES 120 MG/DL (<150); VLDL CHOLESTEROL 24 MG/DL (5-40)
[2018-08-30 13:34] LABS: BACTERIA,URINE NEGATIVE /HPF
[2018-08-30] MEDS ORDERED: fentaNYL INJECTION 100 MCG/2 ML AMP ONE (14:03)
[2018-08-30] MEDS ORDERED: HEParin 1000 UNIT/ML (10ML VIAL) FOR BOLUS ONE (14:03)
[2018-08-30] MEDS ORDERED: MIDAZOLAM 5 MG/5 ML (VERSED) VIAL ONE (14:03)
[2018-08-30] MEDS ORDERED: VERAPAMIL 5 MG/2 ML (CALAN) VIAL IV ONE (14:03)
[2018-08-30] MEDS ORDERED: NITRO DRIP 25000 MCG/D5W 250 ML IV ONE (14:04)
--- NOTE | 2018-08-30 14:06 | Cardiac Procedure Note-CS/ASA ---
Pre-Procedure Note Pre-Op Procedure Note H&P Reviewed The H&P was reviewed, patient examined and no changes noted. Date H&P Reviewed: August 30, 2018 Time H&P Reviewed: 14:06 Conscious Sedation Pre-Proced Time 14:05 ASA Score 3 For ASA 3 and 4: Consider anesthesia and medical clearance. Also, for patients with a history of failed moderate sedation consider anesthesia. Airway Lungs Heart ASA score ASA 1: a normal healthy patient ASA 2: a patient with a mild systemic disease (mid diabetes, controlled hypertension, obesity X ASA 3: a patient with a severe systemic disease that limits activity (angina, COPD, prior Myocardial infarction) ASA 4: a patient with an incapacitating disease that is a constant threat to life (CHF, renal failure) ASA 5: a moribund patient not expected to survive 24 hrs. (ruptured aneurysm) ASA 6: a declared brain- patient whose organs are being harvested. For emergent operations, add the letter E after the classification Mallampati Classification Grade 3 Sedation Plan Analgesia, Amnesia, Plan communicated to team members, Discussed options with patient/fam, Discussed risks with patient/fam The patient is an appropriate candidate to undergo the planned procedure, sedation, and anesthesia. The patient immediately re-assessed prior to indication. JAMIL DURÁN MD August 30, 2018 14:06
--- NOTE | 2018-08-30 14:45 | Discharge Inst-Post CATH ---
Discharge Inst-CATH/EP Post Cardiac Cath/EP D/C Inst Follow Up/Plan Appointment with Dr. DURÁN's office in 2-4 weeks <b>CARDIAC CATH/EP PROCEDURE DISCHARGE INSTRUCTIONS</b> Cardiac Rehab Please be expecting a follow up call from Cardiac Rehab within in one week. ACTIVITY * Go Home directly and rest. * Limit activity of the leg (or wrist if it was used) for 7 days including aerobics, swimming, jogging, bicycling, etc. * Restrict stair-climbing for 7 days if possible, if not, climb up with your non-cath leg, then bring together on the same step. * Avoid lifting, pushing, pulling or excessive movement of the affected extremity for 7 days. * Customary sexual activity may be resumed after 2 days-use caution not to use a position that strains or causes pain to the affected extremity. * No driving for 24 hours. * NO SMOKING. * Avoid straining for bowel movements for 7 days. * Gentle walking on level ground is allowed. * Returning to work will depend on the type of procedure and the results. Your doctor will discuss this with you. CALL YOUR DOCTOR FOR ANY OF THE FOLLOWING: *If bleeding from the puncture site occurs- Apply gentle pressure to site with clean cloth and call your doctor or EMS. * If a knot or lump forms under the skin, increases in size, or causes pain. * If bruising appears to be worsening or moving further down your leg instead of disappearing. * Temperature above 101 F. CARE OF YOUR GROIN INCISION; * Bruising or purple discoloration of the skin near the puncture site is common. * You may shower only, no bathtub bathing for 5 days. Be careful to avoid slipping as your leg may feel stiff. * If a closure device was used on your femoral artery, please see the attached guide regarding care of the device and your leg. * Leave dressing on FOR 24 hours. CARE OF YOUR WRIST INCISION; * Bruising or purple discoloration of the skin near the puncture site is common. * You may shower. * DO NOT submerge wrist. * Leave dressing on FOR 24 hours. JAMIL DURÁN MD August 30, 2018 14:45
--- NOTE | 2018-08-30 14:50 | Cardiac Cath Report ---
Cardiac Cath Report Physician (s)/Touch Up Painter Hand (s) Physician JAMIL DURÁN MD Pre-Procedure Diagnosis Pre-Procedure Diagnosis: coronary artery disease, chest pain Post-Procedure Note Procedure Start Date: August 30, 2018 Name of Procedure: Left heart catheterization Left ventriculogram Aortic arch angiogram Findings/Procedure Note PROCEDURE NOTE: 53 years old lady with history of mild coronary artery disease, has been having recurrent chest pain, continue to have chest pain including today. Had an abnormal stress test with anterior wall ischemia she was scheduled for cardiac catheterization possible PTCA. After explaining the procedure to the patient, all pros and cons were explained, all questions were answered. The patient signed the consent and then she was placed on the cardiac catheterization laboratory. Groin was prepped SL fashion local anesthesia was used. Sheath placed in the right radial artery right radial artery, I had difficulty advancing the J-wire through the right arm I used a long stork wire, [place] catheter was used, advanced to the left ventricular cavity, left ventricular gram was done, pulled back to the left main and left carotid system angiogram was done then turned to the right, and I pulled the catheter to the aortic arch and aortic arch angiogram was done. At the end of the procedure the sheath was removed. Closure device with vascular band was used FINDINGS: Hemodynamics LV 114/7, end-diastolic pressure of 7 Aorta 105/65 mean of 81 ANATOMY: Left Main is trifurcating with no obstructive disease Left Anterior Descending has mild disease nonobstructive disease Left Circumflex has mild disease nonobstructive disease Ramus intermedius/high obtuse marginal branch has mild disease with no obstructive disease Right Coronory Artery is small to moderate in size with no obstructive disease LV Gram was done showing normal left ventricle size and systolic pressure estimated ejection fraction 60 percent Aorta evaluation done with aortic arch under gram which showed normal aortic arch, no dissection or aneurysm, normal right subclavian/innominate artery, left subclavian, left carotid artery CONCLUSION: 1. Mild coronary artery disease with no obstructive disease 2. Normal left ventricular size and systolic function estimated ejection fraction 60 percent 3. Normal aortic arch and great neck vessels DISCUSSION AND RECOMMENDATION: Medical therapy is returned in no intervention is needed Anesthesia Type: Conscious Sedation Estimated blood loss (mL): 5 ml Contrast Amount: 47 ml Total Radiation Dose: 350 mGy Post-Procedure Diagnosis Post-operative diagnosis: Chest pain Coronary artery disease Hypertension Hyperlipidemia JAMIL DURÁN MD August 30, 2018 14:50
[2018-08-30] MEDS ORDERED: ONDANSETRON 4 MG/2 ML (SDV) Z0FRAN ONE (14:53)
[2018-08-30] MEDS ORDERED: PANT40SU PO (14:54)
[2018-08-30] MEDS ORDERED: ONDANSETRON 4 MG/2 ML (SDV) Z0FRAN IVP ONE (15:00)
== END 2018-08-30 17:55 | disposition home or self-care (01) ==
LOC: CATH 11:09 → ICU 14:54 → CATH 17:55
PROVIDERS: ATTEND Internal Medicine Cardiovascular Disease
DX: R07.9 Chest pain, unspecified (principal); I25.10 Atherosclerotic heart disease of native coronary artery without angina pectoris; I10 Essential (primary) hypertension; I34.0 Nonrheumatic mitral (valve) insufficiency; E78.5 Hyperlipidemia, unspecified; R00.2 Palpitations; F17.210 Nicotine dependence, cigarettes, uncomplicated; R94.31 Abnormal electrocardiogram [ECG] [EKG]; Z82.49 Family history of ischemic heart disease and other diseases of the circulatory system; Z79.899 Other long term (current) drug therapy
CPT/HCPCS: 36221; 36415; 71045; 80053; 80061; 81000; 85027; 85610; 85730; 87081; 93458

== ENCOUNTER → 2021-05-06 | Outpatient (CLI) | payer OTHER ==
[~2021-05-06] MED LIST changes: -ENAL10TA PO; +ENAL10TA16 PO; -METO-370 PO; +PANT40SU PO
[2021-05-06 13:48] LABS: ABSOLUTE RETIC # 81 10e9/uL (24-90); BASOPHILS # (AUTO) 0.1 10^3/uL (0.0-0.1); BASOPHILS % (AUTO) 1 % (0-10); EOSINOPHILS # (AUTO) 0.1 10^3/uL (0.0-0.3); EOSINOPHILS % (AUTO) 1 % (0-10); HEMATOCRIT 41 % (35-52); HEMOGLOBIN 13.6 g/dL (11.5-16.0); LYMPHOCYTES # (AUTO) 2.8 10^3/uL (1.0-4.0); LYMPHOCYTES % (AUTO) 29 % (12-44); MEAN CORPUSCULAR HEMOGLOBIN 30 pg (25-34); MEAN CORPUSCULAR HGB CONC 33 g/dL (32-36); MEAN CORPUSCULAR VOLUME 89 fL (80-99); MEAN PLATELET VOLUME 10.6 fL (9.0-12.2); MONOCYTES # (AUTO) 0.7 10^3/uL (0.0-1.0); MONOCYTES % (AUTO) 7 % (0-12); NEUTROPHILS # (AUTO) 5.9 10^3/uL (1.8-7.8); NEUTROPHILS % (AUTO) 62 % (42-75); PLATELET COUNT 303 10^3/uL (130-400); RETICULOCYTE % 1.76 % (0.50-2.40); WHITE BLOOD COUNT 9.6 10^3/uL (4.3-11.0)
[2021-05-06 14:20] LABS: ATYPICAL LYMPHOCYTES 2 %; EOSINOPHILS % (MANUAL) 4 %; LYMPHOCYTES % (MANUAL) 32 %; MONOCYTES % (MANUAL) 8 %; NEUTROPHILS % (MANUAL) 54 %
[2021-05-06 14:22] LABS: ACANTHOCYTES SLIGHT; BURR CELLS SLIGHT
== END ==
LOC: LABNPT 13:36
DX: R52 Pain, unspecified (principal)
CPT/HCPCS: 85007; 85027; 85045; 85055

== ENCOUNTER → 2022-09-28 | Outpatient (CLI) | payer BC ==
[~2022-09-28] MED LIST changes: -ENAL10TA16 PO; +ENLP10T PO
== END ==
LOC: CARD 13:09
PROVIDERS: ATTEND Physician Assistant
DX: I10 Essential (primary) hypertension (principal)
CPT/HCPCS: 93306

== ENCOUNTER → 2022-12-04 | Outpatient (CLI) | payer BC ==
[~2022-12-04] VITALS: Ht 157 cm; Wt 80.0 kg
[~2022-12-04] MED LIST changes: +CATHETER FLUSH 10 ML SYR IVP PRN
[2022-12-04 09:24] VITALS: BP 147/98
--- NOTE | 2022-12-04 11:52 | Cardiology Stress Test Report ---
Stress Test Report Date of Procedure/Referring: Date of Procedure: Dec 04, 2022 PCP Admitting Physician Admitting Physician: Attending Physician: Afshan Frazier Baseline Heart Rate: 91 Baseline Blood Pressure: Blood Pressure Systolic: 147 Blood Pressure Diastolic: 98 Vital Signs Date Time Temp Pulse Resp B/P (MAP) Pulse Ox O2 Delivery O2 Flow Rate FiO2 12/04/22 09:24 91 147/98 (114) 96 Room Air Baseline Vital Signs Vital Signs Date Time Temp Pulse Resp B/P (MAP) Pulse Ox O2 Delivery O2 Flow Rate FiO2 12/04/22 09:24 91 147/98 (114) 96 Room Air Baseline EKG: Baseline EKG: NSR Summary: After explaining the procedure and details to the patient, she signed the consent and was brought to the stress nuclear laboratory. Patient exercised on standard [place] protocol, EKG, heart rate and blood pressure were monitored continuously, resting and stress doses of radio tracer were injected, imaging was acquired and reviewed in the short axis, horizontal long axis and vertical long axis views Patient was able to exercise for a total of 5 minutes on [place] protocol, METs 7 Maximum heart rate 149 Maximum blood pressure 196/77 Stress EKG, Minimal nondiagnostic changes Recovery EKG, Return to baseline TID: 1.23 SSS: 2 SDS: 0 EF: 77 Conclusion: Fair exercise tolerance for 5 minutes on standard [place] protocol, 7 METS achieving 91% of maximal expected heart rate Appropriate heart rate response to exercise with hypertensive response to exercise with peak blood pressure 196/77 return to baseline during recovery Minimal nondiagnostic EKG changes with exercise return to baseline during recovery No significant ischemia or infarction on SPECT images Transient ischemic dilatation of 1.23 which could be secondary to the small left ventricular size Small left ventricle with normal contractile to, ejection fraction 77% Copy Copies To 1: ALTAGRACIA MOREJON BASHAR J MD Dec 04, 2022 11:52
== END ==
LOC: CARD 07:10
PROVIDERS: ATTEND Physician Assistant
DX: I10 Essential (primary) hypertension (principal)
CPT/HCPCS: 78452; 93017; A9502

== ENCOUNTER 2022-12-20 10:00 | Day surgery (SDC) | payer BC ==
[~2022-12-20] VITALS: Ht 157.5 cm; Wt 80.0 kg
[2022-12-20 08:08] VITALS: BP 133/73
[2022-12-20 08:26] LABS: HEMATOCRIT 41 % (35-52); MEAN CORPUSCULAR HEMOGLOBIN 29 pg (25-34); MEAN CORPUSCULAR HGB CONC 34 g/dL (32-36); MEAN CORPUSCULAR VOLUME 85 fL (80-99); MEAN PLATELET VOLUME 9.8 fL (9.0-12.2); PLATELET COUNT 256 10^3/uL (130-400); WHITE BLOOD COUNT 7.8 10^3/uL (4.3-11.0)
--- NOTE | 2022-12-20 08:30 | Diagnostic Imaging Report ---
INDICATION: Coronary artery disease, pre-catheterization. Frontal chest obtained at 0804 a.m. Heart and mediastinal silhouette are normal in appearance. The lungs are clear. There is no pneumothorax or pleural fluid. IMPRESSION: Negative chest. Dictated by: Dictated on workstation # [id number]
[2022-12-20 08:37] LABS: PROTHROMBIN TIME PATIENT 13.4 SEC (12.2-14.7)
[2022-12-20 08:40] LABS: CLARITY,URINE CLEAR; COLOR,URINE YELLOW; GLUCOSE, URINE (UA) NEGATIVE (NEGATIVE); PROTEIN,URINE NEGATIVE (NEGATIVE)
[2022-12-20 08:41] LABS: BACTERIA,URINE NEGATIVE /HPF; BILIRUBIN,URINE NEGATIVE (NEGATIVE); KETONES,URINE NEGATIVE (NEGATIVE); LEUKOCYTE ESTERASE ,URINE NEGATIVE (NEGATIVE); NITRITE,URINE NEGATIVE (NEGATIVE); SQUAMOUS EPITHELIAL CELL,UR 0-2 /HPF
[2022-12-20 08:45] LABS: ALBUMIN 4.3 GM/DL (3.2-4.5); BILIRUBIN,TOTAL 0.5 MG/DL (0.1-1.0); CALCIUM 9.1 MG/DL (8.5-10.1); CREATININE SERUM 0.82 MG/DL (0.60-1.30); POTASSIUM 3.5 MMOL/L (3.6-5.0); TOTAL PROTEIN 6.9 GM/DL (6.4-8.2)
--- NOTE | 2022-12-20 09:01 | Cardiac Procedure Note-CS/ASA ---
Pre-Procedure Note Pre-Op Procedure Note Date of Available H&P: Dec 05, 2022 Date H&P Reviewed: Dec 20, 2022 Time H&P Reviewed: 09:01 History & Physical: H&P Reviewed, Patient Examed, No changes noted Pre-Operative Diagnosis: coronary artery disease, chest pain Moderate Sedation PreProcedure Time 09:01 ASA Score 3 Airway Lungs Heart ASA score ASA 1: a normal healthy patient ASA 2: a patient with a mild systemic disease (mid diabetes, controlled hypertension, obesity ASA 3: a patient with a severe systemic disease that limits activity (angina, COPD, prior Myocardial infarction) ASA 4: a patient with an incapacitating disease that is a constant threat to life (CHF, renal failure) ASA 5: a moribund patient not expected to survive 24 hrs. (ruptured aneurysm) ASA 6: a declared brain- patient whose organs are being harvested. For emergent operations, add the letter E after the classification Mallampati Classification Grade 3 Sedation Plan Analgesia, Amnesia, Plan communicated to team members, Discussed options with patient/fam, Discussed risks with patient/fam The patient is an appropriate candidate to undergo the planned procedure, sedation, and anesthesia. The patient immediately re-assessed prior to indication. JAMIL DURÁN MD Dec 20, 2022 09:01
--- NOTE | 2022-12-20 09:52 | Discharge Inst-Post CATH ---
Discharge Inst-CATH/EP Problems Reviewed?: Yes Post Cardiac Cath/EP D/C Inst Follow Up/Plan Hold metformin for [address] Silva's office in 2 to 4 weeks <b>CARDIAC CATH/EP PROCEDURE DISCHARGE INSTRUCTIONS</b> ACTIVITY * Go Home directly and rest. * Limit activity of the leg (or wrist if it was used) for 7 days including aerobics, swimming, jogging, bicycling, etc. * Restrict stair-climbing for 7 days if possible, if not, climb up with your non-cath leg, then bring together on the same step. * Avoid lifting, pushing, pulling or excessive movement of the affected extremity for 7 days. * Customary sexual activity may be resumed after 2 days-use caution not to use a position that strains or causes pain to the affected extremity. * No driving for 24 hours. * NO SMOKING. * Avoid straining for bowel movements for 7 days. * Gentle walking on level ground is allowed. * Returning to work will depend on the type of procedure and the results. Your doctor will discuss this with you. CALL YOUR DOCTOR FOR ANY OF THE FOLLOWING: *If bleeding from the puncture site occurs- Apply gentle pressure to site with clean cloth and call your doctor or EMS. * If a knot or lump forms under the skin, increases in size, or causes pain. * If bruising appears to be worsening or moving further down your leg instead of disappearing. * Temperature above 101 F. CARE OF YOUR GROIN INCISION; * Bruising or purple discoloration of the skin near the puncture site is common. * You may shower only, no bathtub bathing for 5 days. Be careful to avoid slipping as your leg may feel stiff. * If a closure device was used on your femoral artery, please see the attached guide regarding care of the device and your leg. * Leave dressing on FOR 24 hours. CARE OF YOUR WRIST INCISION; * Bruising or purple discoloration of the skin near the puncture site is common. * You may shower. * DO NOT submerge wrist. * Leave dressing on FOR 24 hours. JAMIL SILVA MD Dec 20, 2022 09:52
--- NOTE | 2022-12-20 09:56 | Cardiac Cath Report ---
Cardiac Cath Report Physician (s)/Plastics Factory Worker (s) Physician JAMIL DURÁN MD Pre-Procedure Diagnosis Pre-Procedure Diagnosis: coronary artery disease, chest pain Post-Procedure Note Procedure Start Date: Dec 20, 2022 Name of Procedure: Left heart catheterization Aortic arch angiogram Findings/Procedure Note PROCEDURE NOTE: 57-year-old lady with abnormal stress test with transient ischemic dilatation, has been having increasing chest pain on and off recently. Cardiac catheterization was advised. After explaining the procedure to the patient, all pros and cons were explained, all questions were answered. The patient signed the consent and then she was placed in the cardiac catheterization laboratory. Groin was prepped in SL fashion local anesthesia was used. Sheath placed in the right radial artery, [place] catheter was advanced to the left ventricular cavity, pressure was measured, pullback LV to aorta was done, engage the right and left coronary system, angiogram was done, pulled back to the aortic arch and aortic arch angiogram was done. At the end of the procedure the sheath was removed. Vascular band was used FINDINGS: Hemodynamics LV 143/11, end-diastolic pressure of 11 Aorta 126/75 mean of 98 ANATOMY: Left Main is free of obstructive disease Left Anterior Descending is tortuous artery with no obstructive disease Left Circumflex is codominant artery with no obstructive disease Right Coronary Artery is codominant artery with no obstructive disease LV Gram was not done, pressure was measured Aorta evaluation done with aortic arch angiogram showing calcification in the aortic arch, no dissection or aneurysm, normal origin of the innominate artery, left carotid and left subclavian arteries CONCLUSION: Slightly tortuous LAD system with no obstructive disease in the coronary system, codominant system. Normal left ventricular end-diastolic pressure Calcification in the aortic arch, no dissection or aneurysm with normal great vessels of the neck DISCUSSION AND RECOMMENDATION: Chest pain is probably noncardiac. Maximizing medical therapy is recommended Anesthesia Type: Conscious Sedation Estimated blood loss (mL): 10 ml Contrast Amount: 30 ml Post-Procedure Diagnosis Post-operative diagnosis: Chest pain Coronary artery disease Hypertension Hyperlipidemia JAMIL DURÁN MD Dec 20, 2022 09:56
[~2022-12-20 10:00] MED LIST changes: +ACET325T38 PO; -CATHETER FLUSH 10 ML SYR IVP PRN; +HEParin (CATH LAB) 2,000 ML IV ONE; +HEParin 1000 UNIT/ML (10ML VIAL) FOR BOLUS ONE; +LIDOCAINE 1% INJ 20 ML VIAL ONE; +METF-399 PO; +MIDAZOLAM INJ 5 MG/5 ML VIAL ONE; +NITRO DRIP 25000 MCG/D5W 250 ML IV ONE; +NS IV 1000 ML 0 ML ONE; +NS IV 1000 ML 1,000 ML IV SCH; +ONDANSETRON INJECTION 4 MG/2 ML (SDV) ONE; +PANT40TA52 PO; +ROSU5TAB13 PO; +RT-ALBUINH INH; +SEMA0.258 SQ; +VERAPAMIL 5 MG/2 ML (CALAN) VIAL IV ONE; +fentaNYL INJECTION 100 MCG/2 ML VIAL ONE
[2022-12-20] MEDS ORDERED: ONDANSETRON INJECTION 4 MG/2 ML (SDV) IVP ONE (10:15)
[2022-12-20 10:16] VITALS: BP 102/65
[2022-12-20] MEDS ORDERED: ONDANSETRON INJECTION 4 MG/2 ML (SDV) ONE (10:17)
[2022-12-20 10:30] VITALS: BP 108/67
[2022-12-20 11:15] VITALS: BP 110/70
== END 2022-12-20 12:22 | disposition home or self-care (01) ==
LOC: CATH 10:00
PROVIDERS: ATTEND Internal Medicine Cardiovascular Disease
DX: R07.9 Chest pain, unspecified (principal); I25.10 Atherosclerotic heart disease of native coronary artery without angina pectoris; I10 Essential (primary) hypertension; E78.2 Mixed hyperlipidemia; E66.9 Obesity, unspecified; R00.2 Palpitations; E11.9 Type 2 diabetes mellitus without complications; R06.83 Snoring; I65.23 Occlusion and stenosis of bilateral carotid arteries; F17.210 Nicotine dependence, cigarettes, uncomplicated; Z79.899 Other long term (current) drug therapy; Z68.32 Body mass index [BMI] 32.0-32.9, adult; Z79.84 Long term (current) use of oral hypoglycemic drugs
CPT/HCPCS: 36221; 71045; 80053; 80061; 81000; 85027; 85610; 85730; 87081; 93005; 93458; C1894; 36415